=== PATIENT | female | born 1980 | race Two or more races ===

== ENCOUNTER 2020-11-04 11:30 | Day surgery (SDC) | payer OTHER ==
[~2020-11-04 11:30] MED LIST: Acetaminophen/Cod #3 Tablet PO; Colace 100MG PO; Mylicon 125MG PO; PRENATE ADVANCE PO
== END 2020-11-04 17:20 | disposition home or self-care (01) ==
LOC: AMB-ENDOS 11:30
PROVIDERS: ATTEND Surgery
DX: K62.89 Other specified diseases of anus and rectum (principal); Z12.11 Encounter for screening for malignant neoplasm of colon

== ENCOUNTER 2020-11-28 18:09 | Emergency (ER) | payer OTHER ==
[~2020-11-28] VITALS: Ht 162.6 cm; Wt 56.7 kg
[2020-11-28] MEDS ORDERED: COZAAR25 MG (18:33)
== END 2020-11-28 21:59 | disposition home or self-care (01) ==
LOC: ER 18:09
DX: R51.9 Headache, unspecified (principal); F43.29 Adjustment disorder with other symptoms; Z56.3 Stressful work schedule

== ENCOUNTER 2022-11-25 13:39 | Emergency (ER) | payer OTHER ==
[~2022-11-25] VITALS: Ht 162.6 cm; Wt 59.0 kg
[~2022-11-25 13:39] MED LIST changes: +COZAAR25 MG
[2022-11-25] MEDS ORDERED: METOPROLOL SUCC25 MG PO (15:00)
[2022-11-25] MEDS ORDERED: LISINOPRIL5 MG PO (15:00)
== END 2022-11-25 19:22 | disposition home or self-care (01) ==
LOC: ER 13:39
DX: N39.0 Urinary tract infection, site not specified (principal); R50.9 Fever, unspecified; Z20.822 Contact with and (suspected) exposure to COVID-19

== ENCOUNTER 2024-09-29 10:38 | Emergency (ER) | payer OTHER ==
[~2024-09-29] VITALS: Ht 162.6 cm; Wt 59.0 kg
[~2024-09-29 10:38] MED LIST changes: +LISINOPRIL5 MG PO; +METOPROLOL SUCC25 MG PO
[2024-09-29] MEDS ORDERED: DIATRIZOATE MEGLUMINE, SODIUM 30 ML BOTTLE ONE (13:28)
[2024-09-29 14:04] LABS: BASO % 0.3 % (0.1-1.2); EOS # 0.18 (0.04-0.54); EOS % 2.5 % (0.7-7.0); HEMATOCRIT 35.2 % (34.1-44.9); HEMOGLOBIN 11.1 g/dL (11.2-15.7); LYMPH # 1.28 (1.18-3.74); LYMPH % 17.8 % (19.3-53.1); MEAN CORPUSCULAR HEMOGLOBIN 23.3 pg (25.6-32.2); MONO # 0.46 (0.24-0.82); MONO % 6.4 % (4.7-12.5); NEUT # 5.24 (1.56-6.13); NEUT % 72.7 % (34.0-71.1); PLATELET COUNT 297 K/uL (163-369); RED BLOOD COUNT 4.76 M/uL (3.93-5.22); RED CELL DISTRIBUTION WIDTH 15.9 % (11.6-14.4)
[2024-09-29 14:23] LABS: CALCIUM 9.2 mg/dL (8.5-10.1); CREATININE SERUM 0.54 mg/dL (0.55-1.02); GFR 122.08; POTASSIUM 3.57 mEq/L (3.5-5.1)
== END 2024-09-29 20:49 | disposition home or self-care (01) ==
LOC: ER 10:38
PROVIDERS: Emergency Medicine
DX: R10.9 Unspecified abdominal pain (principal); I10 Essential (primary) hypertension; D25.9 Leiomyoma of uterus, unspecified
CPT/HCPCS: 36415; 74177; 76830; Q9965

== ENCOUNTER 2025-01-13 22:49 | Emergency (ER) | payer OTHER ==
[~2025-01-13] VITALS: Ht 162.6 cm; Wt 59.0 kg
[2025-01-14] MEDS ORDERED: KETOROLAC TROMETHAMINE 30 MG VIAL IV STA (00:56)
[2025-01-14] MEDS ORDERED: 0.9 % SODIUM CHLORIDE 500 ML IV ONE (01:00)
[2025-01-14 02:30] LABS: BASO % 0.7 % (0.1-1.2); EOS # 0.05 (0.04-0.54); EOS % 0.6 % (0.7-7.0); LYMPH # 1.30 (1.18-3.74); LYMPH % 15.4 % (19.3-53.1); MEAN PLATELET VOLUME 11.20 fl (9.4-12.4); MONO # 0.98 (0.24-0.82); MONO % 11.6 % (4.7-12.5); NEUT # 5.29 (1.56-6.13); NEUT % 62.9 % (34.0-71.1)
[2025-01-14 02:51] LABS: ALT/SGPT 32.0 U/L (12-78); AST/SGOT 16.0 U/L (15-37); BILIRUBIN TOTAL 0.2 mg/dL (0.3-1.2); BUN CREA RATIO 31.0 (7.0-25.0); CREATININE SERUM 0.59 mg/dL (0.55-1.02); GFR 110.22; GLOBULINA 3.6 G/DL (2.4-3.5); GLUCOSE FASTING 113.0 mg/dL (65-100); OSMOLALITY SERUM 280.0 MOSM/KG (275-295)
[2025-01-14 03:19] LABS: LYMPHOCYTE MAN 25.0 %; MONOCYTE MAN 2.0 %; NEUTROPHILS MAN 73.0 %; RED CELL DISTRIBUTION WIDTH 22.2 % (11.6-14.4)
== END 2025-01-14 05:49 ==
LOC: ER 22:49
PROVIDERS: General Practice
DX: E86.0 Dehydration (principal); R00.2 Palpitations; R07.89 Other chest pain; I10 Essential (primary) hypertension

== ENCOUNTER 2025-01-29 15:04 | Emergency (ER) | payer OTHER ==
[~2025-01-29] VITALS: Ht 160 cm; Wt 59.0 kg
[2025-01-29] MEDS ORDERED: METHYLPREDNISOLONE SOD SUCC 40 MG VIAL IV STA (16:41)
[2025-01-29] MEDS ORDERED: DIPHENHYDRAMINE HCL 50 MG/ML VIAL 1ML IV STA (16:41)
[2025-01-29] MEDS ORDERED: DIPHENHYDRAMINE HCL 50 MG/ML VIAL 1ML ONE (17:52)
[2025-01-29] MEDS ORDERED: METHYLPREDNISOLONE SOD SUCC 125 MG VIAL ONE (17:52)
[2025-01-29 18:13] LABS: ABG PH 7.411 (7.35-7.45); ABG PO2 118.4 mmHg (80-100); BICARBONATE 23.8 mmol/l (23-25)
[2025-01-29 18:14] LABS: o2 21 %
[2025-01-29 18:19] LABS: BASO % 0.3 % (0.1-1.2); EOS # 0.01 (0.04-0.54); EOS % 0.3 % (0.7-7.0); LYMPH # 0.59 (1.18-3.74); LYMPH % 16.1 % (19.3-53.1); MONO # 0.11 (0.24-0.82); MONO % 3.0 % (4.7-12.5); NEUT # 2.94 (1.56-6.13); NEUT % 80.0 % (34.0-71.1); RED CELL DISTRIBUTION WIDTH 24.0 % (11.6-14.4)
[2025-01-29 18:45] LABS: ALT/SGPT 32 U/L (12-78); AST/SGOT 13 U/L (15-37); BILIRUBIN TOTAL 0.51 mg/dL (0.3-1.2); BUN CREA RATIO 24 (7.0-25.0); CREATININE SERUM 0.58 mg/dL (0.55-1.02); GFR 112.42; GLOBULINA 3.9 G/DL (2.4-3.5); GLUCOSE FASTING 100 mg/dL (65-100); OSMOLALITY SERUM 280 MOSM/KG (275-295)
[2025-01-29 18:50] LABS: URINE APPEARANCE Clear; URINE BILIRRUBIN Negative (NEGATIVE); URINE BLOOD Small; URINE COLOR Yellow; URINE GLUCOSE Negative (NEGATIVE); URINE KETONE Negative (NEGATIVE); URINE LEUKOCYTE Moderate; URINE NITRATE Negative; URINE PROTEIN Negative (NEGATIVE); URINE UROBILINOGEN 1.0 E.U./dl
[2025-01-29 18:54] LABS: URINE BACTERIA 638.3 uL (0.0-1933); URINE EPITHELIAL CELLS 25.6 uL (0.0-38.8); URINE RBC 12.6 uL (0.0-20.8); URINE WBC 345.8 uL (0.0-23.2)
[2025-01-29 19:01] LABS: CKMB < 1.0 NG/ML (0.5-3.6)
[2025-01-29 19:25] LABS: URINE CAST 0.00 uL (0.0-1.40)
[2025-01-29 19:26] LABS: TYPE CELLS SQUAMOUS; URINE MUCUS SCANT
== END 2025-01-29 23:12 | disposition home or self-care (01) ==
LOC: ER 15:05
PROVIDERS: Physician Assistant Medical
DX: R07.9 Chest pain, unspecified (principal); T45.1X5A Adverse effect of antineoplastic and immunosuppressive drugs, initial encounter; Y92.89 Other specified places as the place of occurrence of the external cause; C56.9 Malignant neoplasm of unspecified ovary; E86.0 Dehydration